=== PATIENT | male | born 1990 | race Caucasian/White ===

== ENCOUNTER 2017-01-14 11:14 | Outpatient (CLI) | payer OTHER ==
[2017-01-14 12:41] LABS: ALBUMIN 4.7 g/dL (3.4-4.8); CALCIUM 9.3 mg/dL (8.4-11.0); CREATININE 0.88 mg/dL (0.55-1.30); TOTAL BILIRUBIN 0.7 mg/dL (0.0-1.0); TOTAL PROTEIN, SERUM 8.5 g/dL (6.4-8.3)
[2017-01-15 11:07] LABS: HEPATITIS C VIRUS AB <0.1 s/co ratio (0.0-0.9)
== END 2017-01-14 20:14 | disposition home or self-care (01) ==
LOC: SLB 11:14
PROVIDERS: ATTEND General Practice
DX: Z11.3 Encounter for screening for infections with a predominantly sexual mode of transmission (principal); Z00.01 Encounter for general adult medical examination with abnormal findings; K29.30 Chronic superficial gastritis without bleeding; E55.9 Vitamin D deficiency, unspecified; R79.89 Other specified abnormal findings of blood chemistry
CPT/HCPCS: 36415; 80053; 82306; 82607; 86803

== ENCOUNTER 2017-06-04 23:40 | Outpatient (CLI) | payer OTHER ==
[2017-06-05 00:32] LABS: CALCIUM 9.3 mg/dL (8.4-11.0); CREATININE 0.95 mg/dL (0.55-1.30)
[2017-06-05 00:38] LABS: ALBUMIN 4.7 g/dL (3.4-4.8); TOTAL BILIRUBIN 0.7 mg/dL (0.0-1.0)
[2017-06-06 11:14] LABS: HEPATITIS C VIRUS AB <0.1 s/co ratio (0.0-0.9)
== END 2017-06-04 23:59 | disposition home or self-care (01) ==
LOC: SLB 23:40
PROVIDERS: ATTEND General Practice
DX: Z11.3 Encounter for screening for infections with a predominantly sexual mode of transmission (principal); E55.9 Vitamin D deficiency, unspecified; R06.02 Shortness of breath
CPT/HCPCS: 36415; 80053; 82306; 86592; 86803; 87491; 87591

== ENCOUNTER 2017-06-09 06:42 | Emergency (ER) | payer OTHER ==
[~2017-06-09] VITALS: Ht 182.9 cm; Wt 88.5 kg
[2017-06-09 06:45] VITALS: BP_SYST 140
[2017-06-12 21:34] LABS: HEPATITIS B SURFACE AG Negative (Negative)
[2017-06-12 21:37] LABS: HEPATITIS C VIRUS AB 0.1 s/co (0.0-0.7)
[2017-06-14 10:42] LABS: HEPATITIS B CORE AB, TOTAL Negative (Negative)
== END 2017-06-09 07:58 | disposition home or self-care (01) ==
LOC: SED 06:42
DX: S61.210A Laceration without foreign body of right index finger without damage to nail, initial encounter (principal); W45.8XXA Other foreign body or object entering through skin, initial encounter; Y93.89 Activity, other specified; Y92.239 Unspecified place in hospital as the place of occurrence of the external cause; Y99.0 Civilian activity done for income or pay
CPT/HCPCS: 36415; 86704; 86706; 86803; 87340; 99284

== ENCOUNTER 2017-11-21 06:00 | Outpatient (CLI) | payer OTHER ==
[2017-11-22 13:14] LABS: HEPATITIS B CORE AB, TOTAL Negative (Negative)
== END 2017-11-21 16:40 | disposition home or self-care (01) ==
LOC: SLB 06:00
PROVIDERS: ATTEND General Practice
DX: Z00.01 Encounter for general adult medical examination with abnormal findings (principal); R79.89 Other specified abnormal findings of blood chemistry
CPT/HCPCS: 36415; 82306; 82607; 86592; 86704